=== PATIENT | female | born 1995 | race Caucasian/White ===

== ENCOUNTER 2017-08-26 19:18 | Emergency (ER) | payer OTHER ==
[2017-08-26 20:34] VITALS: BP 137/53
[2017-08-26] MEDS ORDERED: Acetaminophen TAB* 325 MG PO ONE (20:40)
--- NOTE | 2017-08-26 20:54 | UC ---
Throat Pain/Nasal Eusebio HPI - HPI Summary HPI Summary: Pt c/o sudden onset of sore throat fever and chills last night. - History of Current Complaint Chief Complaint: UCGeneralIllness Stated Complaint: FEVER,ST,ACHY Time Seen by Provider: 08/26/17 20:38 Hx Obtained From: Patient Hx Last Menstrual Period: on BCP ?: No Onset/Duration: Sudden Onset, Lasting Hours, Still Present Severity: Moderate Cough: None Associated Signs & Symptoms: Positive: Dysphagia, Fever - Epiglottits Risk Factors Epiglottis Risk Factors: Sudden Onset - Allergies/Home Medications Allergies/Adverse Reactions: Allergies Allergy/AdvReac Type Severity Reaction Status Date / Time No Known Allergies Allergy Verified 08/26/17 20:35 Home Medications: Home Medications Ibuprofen TAB* [Motrin TAB* 600 MG] 600 mg PO Q8H PRN 08/26/17 [History Confirmed 08/26/17] PMH/Surg Hx/FS Hx/Imm Hx Previously Healthy: Yes - Surgical History Surgical History: None Surgery Procedure, Year, and Place: denies - Family History Known Family History: Positive: Cardiac Disease - Social History Occupation: Student Lives: Dormitory/Roommates Alcohol Use: Weekly Alcohol Amount: once a week Substance Use Type: None Smoking Status (MU): Never Smoked Tobacco Have You Smoked in the Last Year: No - Immunization History Most Recent Influenza Vaccination: none Review of Systems Constitutional: Fever, Chills, Fatigue Skin: Negative Eyes: Negative ENT: Sore Throat Respiratory: Negative Cardiovascular: Negative Gastrointestinal: Negative Genitourinary: Negative Motor: Negative Neurovascular: Negative Musculoskeletal: Negative Neurological: Headache Psychological: Negative Is Patient Immunocompromised?: No All Other Systems Reviewed And Are Negative: Yes Physical Exam Triage Information Reviewed: Yes Appearance: Well-Appearing Vital Signs: Initial Vital Signs Temp 101.8 F 08/26/17 20:29 Pulse 96 08/26/17 20:29 Resp 17 08/26/17 20:29 BP 137/53 08/26/17 20:29 Pulse Ox 100 08/26/17 20:29 Vital Signs Reviewed: Yes Eye Exam: Normal ENT Exam: Other ENT: Positive: Tonsillar swelling Dental Exam: Normal Neck exam: Normal Respiratory Exam: Normal Cardiovascular Exam: Normal Musculoskeletal Exam: Normal Neurological Exam: Normal Psychological Exam: Normal Skin Exam: Normal Throat Pain/Nasal Course/Dx - Course Course Of Treatment: I offered mono testing and pt refused. - Differential Dx/Diagnosis Differential Diagnosis/HQI/PQRI: Mononucleosis, Tonsillitis Provider Diagnoses: tonsillitis. mono? Discharge - Discharge Plan Condition: Stable Disposition: HOME Prescriptions: Penicillin VK 500 MG TAB(NF) [Penicillin VK 500 mg Tab] 500 mg PO Q8H #30 tab Patient Education Materials: Tonsillitis (ED) Referrals: Non Staff,Doctor [Primary Care Provider] - If Needed
[2017-08-26] MEDS ORDERED: Penicillin VK 500 MG TAB(NF) PO ONE (20:58)
[2017-08-26] MEDS ORDERED: Penicillin VK TAB* 250 MG PO ONE (21:02)
== END 2017-08-26 21:13 | disposition home or self-care (01) ==
LOC: UCCORT 19:18
DX: J03.90 Acute tonsillitis, unspecified (principal)
CPT/HCPCS: 87502; 87651; 99212; A9270-GY; G0463

== ENCOUNTER 2017-10-26 18:16 | Emergency (ER) | payer OTHER ==
[2017-10-26 19:47] VITALS: BP 115/60
--- NOTE | 2017-10-26 20:00 | UC ---
Throat Pain/Nasal Eusebio HPI - HPI Summary HPI Summary: congestion, throat pain x 24-48 hours, pain with swallowing, has improved since this AM< noted swelling, LAD submand, no fever, chills, no body aches. no recent meds, ABX, - History of Current Complaint Hx Obtained From: Patient Hx Last Menstrual Period: 09/13/17 Onset/Duration: Sudden Onset, Lasting Days Severity: Moderate Pain Intensity: 3 Pain Scale Used: 0-10 Numeric <Chloe Tse - Last Filed: 10/26/17 20:18> <Kim Peguero - Last Filed: 10/26/17 20:27> - History of Current Complaint Chief Complaint: UCGeneralIllness Stated Complaint: ST, TROUBLE SWALLOWING/BREATHING Time Seen by Provider: 10/26/17 19:49 - Allergies/Home Medications Allergies/Adverse Reactions: Allergies Allergy/AdvReac Type Severity Reaction Status Date / Time No Known Allergies Allergy Verified 10/26/17 19:47 PMH/Surg Hx/FS Hx/Imm Hx Previously Healthy: Yes - h/o sore throats in past - Surgical History Surgical History: None Surgery Procedure, Year, and Place: denies - Family History Known Family History: Positive: Cardiac Disease - Social History Alcohol Use: Weekly Alcohol Amount: once a week Substance Use Type: None Smoking Status (MU): Never Smoked Tobacco Have You Smoked in the Last Year: No - Immunization History Most Recent Influenza Vaccination: none <Chloe Tse - Last Filed: 10/26/17 20:18> Review of Systems ENT: Sore Throat, Sinus Congestion, Sinus Pain/Tenderness Is Patient Immunocompromised?: No All Other Systems Reviewed And Are Negative: Yes <Chloe Tse - Last Filed: 10/26/17 20:18> Physical Exam Triage Information Reviewed: Yes Appearance: Well-Appearing, No Pain Distress, Well-Nourished Vital Signs: Initial Vital Signs Temp 98.9 F 10/26/17 19:41 Pulse 59 10/26/17 19:41 Resp 18 10/26/17 19:41 BP 115/60 10/26/17 19:41 Pulse Ox 100 10/26/17 19:41 Vital Signs Reviewed: Yes Eyes: Positive: Conjunctiva Clear ENT: Positive: Pharyngeal erythema - minimal, Nasal congestion, TMs normal - fluid levels b/l posteror TM, Tonsillar swelling - L > r, Uvula midline. Negative: Tonsillar exudate, Hoarse voice, Dental tenderness, Sinus tenderness Neck: Positive: Supple, Tenderness @ - LAD b/l, Enlarged Nodes @ - submand b/l > 1cm Respiratory: Positive: Chest non-tender, Lungs clear, Normal breath sounds, No respiratory distress, No accessory muscle use. Negative: Crackles, Rhonchi, Stridor, Wheezing Cardiovascular: Positive: RRR, No Murmur Abdomen Description: Positive: Nontender, No Organomegaly, Soft, Bruit. Negative: Splenomegaly Musculoskeletal Exam: Normal <Chloe Tse - Last Filed: 10/26/17 20:18> Vital Signs: Initial Vital Signs Temp 98.9 F 10/26/17 19:41 Pulse 59 10/26/17 19:41 Resp 18 10/26/17 19:41 BP 115/60 10/26/17 19:41 Pulse Ox 100 10/26/17 19:41 <Kim Peguero - Last Filed: 10/26/17 20:27> Throat Pain/Nasal Course/Dx - Course Course Of Treatment: rapid strep - + abx given, follow up with PC within 1 week , OTC for symptoms. prednisone for tonsil swelling - Differential Dx/Diagnosis Differential Diagnosis/HQI/PQRI: Foreign Body, Influenza, Peritonsillar Abscess , Pharyngitis Provider Diagnoses: strep throat <Chloe Tse - Last Filed: 10/26/17 20:18> Discharge <Chloe Tse - Last Filed: 10/26/17 20:18> <Kim Peguero - Last Filed: 10/26/17 20:27> - Discharge Plan Condition: Fair Disposition: HOME Prescriptions: Penicillin VK 500 MG TAB(NF) [Penicillin VK 500 mg Tab] 500 mg PO QID #30 tab predniSONE TAB* [Deltasone TAB*] 10 mg PO DAILY #6 tab Patient Education Materials: Strep Throat (ED) Forms: *School Release Referrals: No Primary Care Phys,NOPCP [Primary Care Provider] - Additional Instructions: - antibiotics as directed - Increase fluid intake - motrin/ tylenol as needed for pain, fever - Prednisone for swelling x 3 days - return to ER with decreasd swallowing, shortness of breath Attestation Statement User Type: Provider - I was available for consult. This patient was seen by the KATINA. The patient was not presented to, seen by, or examined by me. Agustina <Kim Peguero - Last Filed: 10/26/17 20:27>
== END 2017-10-26 20:30 | disposition home or self-care (01) ==
LOC: UCCORT 18:16
DX: J02.0 Streptococcal pharyngitis (principal)
CPT/HCPCS: 87651; 99212; G0463